=== PATIENT | female | born 1970 | race Caucasian/White ===

== ENCOUNTER 2017-08-19 16:47 | Emergency (ER) | payer OTHER ==
[2017-08-19 17:16] VITALS: RESP 18; TEMP 97.7; O2SAT 99
--- NOTE | 2017-08-19 18:07 | C.PDOC ---
History Of Present Illness 08/19/2017 India Prasad is a 46 y/o female, who presents to the ED complaining of left wrist pain that radiates up her arm since five days ago. Patient reports she also has left foot tingling sensation that goes up her left thigh. Patient denies any trauma, gait changes, or other complaints. Time Seen by Provider: 08/19/17 17:32 Chief Complaint (Nursing): Lower Extremity Problem/Injury History Per: Patient History/Exam Limitations: no limitations Onset/Duration Of Symptoms: Days (5 days) Current Symptoms Are (Timing): Still Present - Ankle/Foot Description Of Injury: Other (tingling sensation on left foot that radiates up her thigh) Past Medical History Reviewed: Historical Data, Nursing Documentation, Vital Signs Vital Signs: Last Vital Signs Temp 97.7 F 08/19/17 17:14 Pulse 71 08/19/17 18:19 Resp 18 08/19/17 18:19 BP 122/69 08/19/17 18:19 Pulse Ox 99 08/19/17 18:19 - Medical History PMH: Asthma Denies: HTN Family History: States: Unknown Family Hx - Social History Hx Tobacco Use: No Hx Alcohol Use: No Hx Substance Use: No - Immunization History Hx Tetanus Toxoid Vaccination: No Hx Influenza Vaccination: No Hx Pneumococcal Vaccination: No Review Of Systems Constitutional: Negative for: Fever Cardiovascular: Negative for: Chest Pain Respiratory: Negative for: Shortness of Breath Genitourinary: Negative for: Dysuria Musculoskeletal: Positive for: Foot Pain (foot tingling sensation that radiates up her thigh), Other (left wrist pain/tingling sensation radiates up her arm.) Neurological: Negative for: Weakness, Headache Physical Exam - Physical Exam Appears: Well, Non-toxic, No Acute Distress Skin: Normal Color, Warm, Dry Head: Atraumatic, Normacephalic Eye(s): bilateral: Normal Inspection, PERRL, EOMI Nose: Normal Cardiovascular: Rhythm Regular Respiratory: Normal Breath Sounds Gastrointestinal/Abdominal: Normal Exam Back: Normal Inspection Extremity: Normal ROM, No Tenderness, No Deformity, No Swelling Pulses: Left Dorsalis Pedis: Normal, Right Dorsalis Pedis: Normal Neurological/Psych: Oriented x3, Normal Speech, Normal Motor, Normal Sensation, Normal Reflexes Gait: Steady ED Course And Treatment O2 Sat by Pulse Oximetry: 99 (room air) Pulse Ox Interpretation: Normal Medical Decision Making Medical Decision Makin08/19/2017 Plan: -- Toradol -- Left foot x-ray -- Left wrist x-ray -- Reassess and disposition Re-evaluation: On re-exam, the patient reports improvement of symptoms. Lungs are CTA, heart is RRR, abdomen is soft non-tender and tolerating Po well. Ambulatory in the ED with steady gait. Follow up with the medical doctor within 1-2 days. Return if worsened. Discussed results and plan with patient. Patient understands results and is agreeable with plan. All questions answered. Disposition - Disposition Referrals: Clinic,Med Surg [Primary Care Provider] - Disposition: HOME/ ROUTINE Disposition Time: 06:10 Condition: STABLE Additional Instructions: Follow up with the medical doctor within 1-2 days. Return if worsened. Prescriptions: Cyclobenzaprine [Flexeril] 5 mg PO TID #21 tab Naproxen [Naprosyn] 500 mg PO BID #20 tab Instructions: Arthritis (ED) Forms: [employer] (Macanese) Print Language: MICRONESIAN - Clinical Impression Clinical Impression: Arthralgia - Scribe Statement The provider has reviewed the documentation as recorded by the Scribe 08/19/2017 Scribe Attestation: Mansi Timmons MD Scribe Attestation: All medical record entries made by the Scribe were at my direction and personally dictated by me. I have reviewed the chart and agree that the record accurately reflects my personal performance of the history, physical exam, medical decision making, and the department course for this patient. I have also personally directed, reviewed, and agree with the discharge instructions and disposition.
[2017-08-19 18:20] VITALS: BP 122/69; PULSE 71
== END 2017-08-19 18:21 | disposition home or self-care (01) ==
LOC: C.ER 16:47 → SUPCPDRO 16:47 → C.ER 18:21
DX: M25.532 Pain in left wrist (principal)
CPT/HCPCS: 96372; 99284; J1885

== ENCOUNTER 2017-08-20 03:05 | Emergency (ER) | payer OTHER ==
[2017-08-20 03:37] VITALS: BP 140/93; RESP 18
--- NOTE | 2017-08-20 03:57 | C.PDOC ---
History Of Present Illness 46 year old female who presents to the ER with a complaint of vague body aches, arthralgias, and a hot and cold sensation but none at this time. Patient has a Hx of extensive anxiety disorder; [facility] and was worked up with an x-ray but left without results. Denies fever or chills. Time Seen by Provider: 08/20/17 03:47 Chief Complaint (Nursing): Upper Extremity Problem/Injury History Per: Patient History/Exam Limitations: no limitations Onset/Duration Of Symptoms: Days Current Symptoms Are (Timing): Still Present Recent travel outside of the [place]: No Past Medical History Reviewed: Historical Data, Nursing Documentation, Vital Signs Vital Signs: Last Vital Signs Temp 97.9 F 08/20/17 04:10 Pulse 82 08/20/17 04:10 Resp 18 08/20/17 04:10 BP 140/93 H 08/20/17 03:28 Pulse Ox 97 08/20/17 04:10 - Medical History PMH: Asthma Surgical History: No Surg Hx Family History: States: Unknown Family Hx - Social History Hx Tobacco Use: No Hx Alcohol Use: No Hx Substance Use: No - Immunization History Hx Tetanus Toxoid Vaccination: No Hx Influenza Vaccination: No Hx Pneumococcal Vaccination: No Review Of Systems Constitutional: Negative for: Fever, Chills Musculoskeletal: Positive for: Other (Body aches) Physical Exam - Physical Exam Appears: Non-toxic, No Acute Distress, Other (Asleep, easily arousable, pressured speech, anxious) Skin: Normal Color, Warm, Dry Head: Atraumatic, Normacephalic Oral Mucosa: Moist Chest: Symmetrical, No Tenderness Cardiovascular: Rhythm Regular, No Murmur Respiratory: Normal Breath Sounds, No Rales, No Rhonchi, No Wheezing Gastrointestinal/Abdominal: Soft, No Tenderness Extremity: Normal ROM (x4), Other (Joints normal) Neurological/Psych: Oriented x3, Normal Speech, Normal Cognition ED Course And Treatment O2 Sat by Pulse Oximetry: 98 (Room air) Pulse Ox Interpretation: Normal Progress Note: Tylenol administered. Medical Decision Making Medical Decision Making: returns to ED with c/o occasional L wrist and L leg discomforts but not now seen yesterday in ED for same but pt declined labs/x-rays Exam c/w pressured speech, anxiety, paranoia c/w prior anxiety dx. Tylenol educated and reassured, no further eval/tx required- will see PMD later today. Disposition Doctor Will See Patient In The: Office Counseled Patient/Family Regarding: Studies Performed, Diagnosis - Disposition Referrals: [facility] [Outside] [facility] [Outside] Disposition: HOME/ ROUTINE Disposition Time: 03:56 Condition: GOOD Additional Instructions: sigue con null medico peter normal Brianda tylenol 975 mg cada 6 horas peter necessario para briana peter Instructions: Anxiety (ED) Forms: [employer] (Citizen Of [place]) Print Language: CROATIAN - Clinical Impression Clinical Impression: Anxiety, Arthralgia - Scribe Statement The provider has reviewed the documentation as recorded by the Scribbrian Waldrop All medical record entries made by the Scribe were at my direction and personally dictated by me. I have reviewed the chart and agree that the record accurately reflects my personal performance of the history, physical exam, medical decision making, and the department course for this patient. I have also personally directed, reviewed, and agree with the discharge instructions and disposition.
[2017-08-20 04:11] VITALS: PULSE 82; TEMP 97.9
[2017-08-20 04:42] VITALS: O2SAT 98
== END 2017-08-20 04:14 | disposition home or self-care (01) ==
LOC: C.ER 03:05
DX: F41.9 Anxiety disorder, unspecified (principal); M25.50 Pain in unspecified joint

== ENCOUNTER 2018-07-16 11:06 | Emergency (ER) | payer OTHER ==
[2018-07-16 11:19] VITALS: O2SAT 97
[2018-07-16] MEDS ORDERED: Naproxen 550 mg Tab PO STA (11:42)
--- NOTE | 2018-07-16 11:53 | C.PDOC ---
History Of Present Illness 47 y/o female presents to ED with c/o intermittent pain and swelling to left wrist for 2 weeks. 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 Patient denies direct injury, numbness, decreased rom or any other complaints at this time. Time Seen by Provider: 07/16/18 11:27 Chief Complaint (Nursing): Upper Extremity Problem/Injury History Per: Patient History/Exam Limitations: no limitations Onset/Duration Of Symptoms: Days Current Symptoms Are (Timing): Still Present Past Medical History Reviewed: Historical Data, Nursing Documentation, Vital Signs Vital Signs: Last Vital Signs Temp 98.1 F 07/16/18 11:53 Pulse 67 07/16/18 11:53 Resp 18 07/16/18 11:53 BP 143/83 07/16/18 11:53 Pulse Ox 97 07/16/18 12:07 - Medical History PMH: Asthma Surgical History: No Surg Hx Family History: States: No Known Family Hx - Social History Hx Tobacco Use: No Hx Alcohol Use: No Hx Substance Use: No - Immunization History Hx Tetanus Toxoid Vaccination: No Hx Influenza Vaccination: No Hx Pneumococcal Vaccination: No Review Of Systems Musculoskeletal: Positive for: Hand Pain Skin: Negative for: Rash, Bruising Neurological: Negative for: Weakness, Numbness Physical Exam - Physical Exam Appears: Non-toxic, No Acute Distress Skin: Warm, Dry, No Rash Head: Atraumatic, Normacephalic Eye(s): bilateral: Normal Inspection Oral Mucosa: Moist Extremity: Capillary Refill (<2 seconds), No Deformity, Swelling (Left wrist has mild tenderness and minimal swelling. No snuff box tenderness. FROM. ) Extremity: Bilateral: Normal ROM Pulses: Left Radial: Normal, Right Radial: Normal Neurological/Psych: Oriented x3, Normal Motor, Normal Sensation Gait: Steady ED Course And Treatment O2 Sat by Pulse Oximetry: 97 (RA) Pulse Ox Interpretation: Normal Medical Decision Making Medical Decision Making: The patient's physical exam is consistent with tendonitis vs. carpal tunnel syndrome. The patient has full ROM. Velcro wrist splint was applied. Disposition - Disposition Referrals: Jean-Paul Cole MD [Staff Provider] - Disposition: HOME/ ROUTINE Disposition Time: 12:05 Condition: STABLE Additional Instructions: Follow up with the medical doctor/clinic within 1-2 days. Return if worsened. Prescriptions: Naproxen [Naprosyn] 500 mg PO BID #20 tab Instructions: Tendonitis (DC) Forms: [employer] (Argentine) - Clinical Impression Clinical Impression: Tendonitis - PA / BODYWORK THERAPIST / Resident Statement MD/DO has reviewed & agrees with the documentation as recorded. - Scribe Statement The provider has reviewed the documentation as recorded by the Aprilibbrian Sauceda All medical record entries made by the Aprilibbrian were at my direction and personally dictated by me. I have reviewed the chart and agree that the record accurately reflects my personal performance of the history, physical exam, medical decision making, and the department course for this patient. I have also personally directed, reviewed, and agree with the discharge instructions and disposition.
[2018-07-16 11:54] VITALS: BP 143/83; PULSE 67; RESP 18; TEMP 98.1
[2018-07-16] MEDS ORDERED: Naproxen 550 mg Tab PO ONE (11:57)
== END 2018-07-16 12:21 | disposition home or self-care (01) ==
LOC: C.ER 11:06
DX: M77.8 Other enthesopathies, not elsewhere classified (principal)

== ENCOUNTER 2018-09-22 10:50 | Emergency (ER) | payer OTHER ==
[2018-09-22 10:56] VITALS: BP 143/83; PULSE 67; RESP 20; TEMP 97.8; O2SAT 100
--- NOTE | 2018-09-22 11:14 | C.PDOC ---
History Of Present Illness 47 year old female presents to ED for evaluation of pain to an area on the right lower leg for the past month. Patient states she had surgery to right leg for vericose veins several years ago, and states she has been having pain to the leg since then but worse over the last month. Notes she was seen by an orthopedist for her wrist pain and had also mentioned about her leg pain to the orthopedist who told patient she has a suture in the skin. Patient is requesting to have that suture removed. She is also requesting a referral to see a vascular surgeon. Denies fever, chills, change in sensation, or any other complaints at this time. Time Seen by Provider: 09/22/18 11:03 Chief Complaint (Nursing): Lower Extremity Problem/Injury History Per: Patient History/Exam Limitations: no limitations Onset/Duration Of Symptoms: Days Current Symptoms Are (Timing): Still Present Recent travel outside of the [place]: No Additional History Per: Patient Past Medical History Reviewed: Historical Data, Nursing Documentation, Vital Signs Vital Signs: Last Vital Signs Temp 97.8 F 09/22/18 10:52 Pulse 67 09/22/18 10:52 Resp 20 09/22/18 10:52 BP 143/83 09/22/18 10:52 Pulse Ox 100 09/22/18 10:52 - Medical History PMH: Asthma Denies: HTN Family History: States: Unknown Family Hx - Social History Hx Tobacco Use: No Hx Alcohol Use: No Hx Substance Use: No - Immunization History Hx Tetanus Toxoid Vaccination: No Hx Influenza Vaccination: No Hx Pneumococcal Vaccination: No Review Of Systems Except As Marked, All Systems Reviewed And Found Negative. Constitutional: Negative for: Fever, Chills Musculoskeletal: Positive for: Leg Pain (right) Neurological: Negative for: Weakness, Numbness Physical Exam - Physical Exam Appears: Non-toxic, No Acute Distress Skin: Warm, Dry, Other (0.5cm of mildly tender and non-erythematous nodule to right distal lateral tibial region. non-tender, non-swollen vericose veins ) Head: Atraumatic, Normacephalic Eye(s): bilateral: Normal Inspection Oral Mucosa: Moist Neck: Normal ROM, Supple Chest: Symmetrical Extremity: Normal ROM, No Tenderness, No Pedal Edema, No Calf Tenderness, Capillary Refill (less than 2 seconds), No Deformity, No Swelling Pulses: Left Dorsalis Pedis: Normal, Right Dorsalis Pedis: Normal Neurological/Psych: Oriented x3, Normal Speech, Normal Motor, Normal Sensation Gait: Steady ED Course And Treatment O2 Sat by Pulse Oximetry: 100 (RA) Pulse Ox Interpretation: Normal Medical Decision Making Medical Decision Making: Patient is being discharged home with referral to follow up with vascular surgeon. Disposition Counseled Patient/Family Regarding: Diagnosis, Need For Followup - Disposition Referrals: Kevin Rushing Jr., MD [Staff Provider] - Disposition: HOME/ ROUTINE Disposition Time: 11:14 Condition: STABLE Additional Instructions: Vaya a null mdico o la clnica en 2-5 bass sin falta, para mas evaluacin. Platte los medicamentos peter indicado. Volver a la aaron de emergencia en cualquier momento si los sntomas persisten o empeoran. Prescriptions: Ibuprofen [Motrin] 600 mg PO Q8 #30 tab Instructions: Muscle and Bone Pain (DC) Forms: [employer] (Macedonian) Print Language: PERSIAN - POA Present On Arrival: None - Clinical Impression Clinical Impression: Leg pain, right - PA / BELT BRANDER / Resident Statement MD/DO has reviewed & agrees with the documentation as recorded. - Scribe Statement The provider has reviewed the documentation as recorded by the Scribe KP All medical record entries made by the Scribe were at my direction and personally dictated by me. I have reviewed the chart and agree that the record accurately reflects my personal performance of the history, physical exam, medical decision making, and the department course for this patient. I have also personally directed, reviewed, and agree with the discharge instructions and disposition.
== END 2018-09-22 11:57 | disposition home or self-care (01) ==
LOC: C.ER 10:50
DX: M79.604 Pain in right leg (principal)